=== PATIENT | male | born 1950 | race Caucasian/White ===

== ENCOUNTER → 2017-10-10 | Outpatient (CLI) | payer MEDICARE ==
--- NOTE | 2017-10-10 14:54 | Diagnostic Imaging Report ---
Examination: CT Thoracic and Lumbar Spines without Contrast History: Back pain. Comparison studies: None Technique: Axial images through the thoracic and lumbar spines. Coronal and sagittal reconstructions obtained from the axial data. Intravenous contrast: None Findings: The usual 5 non-rib bearing lumbar vertebral bodies are present. Alignment: Normal lordosis. No scoliosis. Soft tissues: No abnormalities. Paraspinal muscles: Unremarkable. Sacroiliac joints: No degenerative changes. Vertebrae: No fractures, infection or neoplasm. Degenerative changes: Thoracic spine: Anterior bridging osteophytosis from T7 through T12. Lumbar spine: L1-L2 and L2-L3: No abnormalities. L3-L4: Diffuse disc bulge and mild bilateral facet arthropathy. No foraminal or canal stenosis. L4-L5: Diffuse disc bulge and moderate bilateral facet arthropathy result in mild bilateral neural foraminal narrowing. No canal stenosis. L5-S1: Central disc osteophyte protrusion superimposed diffuse disc osteophyte complex and moderate bilateral facet arthropathy result in severe bilateral neural foraminal narrowing. No canal stenosis. IMPRESSION: 1. No acute thoracic or lumbar spine abnormality. 2. 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 3. No canal stenosis. Signed by: Dr. Marycruz Goldstein M.D. on 10/10/2017 2:50 PM
== END ==
LOC: CT 13:47
PROVIDERS: ATTEND Specialist
DX: M51.34 Other intervertebral disc degeneration, thoracic region (principal); M51.36 Other intervertebral disc degeneration, lumbar region
CPT/HCPCS: 72128; 72131